=== PATIENT | female | born 1980 | race Caucasian/White ===

== ENCOUNTER 2018-06-28 00:25 | Emergency (ER) | payer OTHER ==
[2018-06-28] MEDS ORDERED: Sodium Chloride 0.9% 10 ML Syringe FLUSH PRN (00:55)
[2018-06-28] MEDS ORDERED: LORazepam 0.5 MG Tab PO ONE ×2 (01:04→02:10)
--- NOTE | 2018-06-28 01:13 | EDM.PDOC ---
ED HPI GENERAL MEDICAL PROBLEM - General Chief Complaint: General Stated Complaint: palpitations Time Seen by Provider: 06/28/18 00:40 Source of Information: Reports: Patient History Limitations: Reports: No Limitations - History of Present Illness INITIAL COMMENTS - FREE TEXT/NARRATIVE: 38 YO WF presents to ER complaining of 1 week of intermittent palpitations, feeling flush in her face, hands and feet and feeling shaky. Pt denies any chest pain or shortness of breath. Pt states she has been under additional stress lately but states this is the first time she's experienced these symptoms. Pt denies any lower extremity swelling, no history of tobacco use, no long car/plane rides. Pt does take BCP. Pt reports she is also taking some OTC vitamins but nothing new recently. Pt denies any other medication use/drug use or past medical history. Pt denies any fever/chills, recent illnesses, no nausea /vomiting, no dizziness or diaphoresis. Onset Date: 06/21/18 Duration: Week(s): (1) Location: Reports: Generalized Severity: Moderate Improves with: Reports: None Worsens with: Reports: None Associated Symptoms: Reports: No Other Symptoms. Denies: Chest Pain, Diaphoresis, Nausea/Vomiting, Shortness of Breath, Syncope - Related Data Allergies Allergy/AdvReac Type Severity Reaction Status Date / Time No Known Allergies Allergy Verified 06/28/18 00:47 Home Meds: Home Meds Desogestrel-Ethinyl Estradiol [Apri 28 Day Tablet] 1 each PO DAILY 06/28/18 [ History] ED ROS GENERAL - Review of Systems Review Of Systems: See Below Constitutional: Reports: Chills HEENT: Reports: No Symptoms Respiratory: Reports: No Symptoms Cardiovascular: Reports: Palpitations Endocrine: Reports: No Symptoms GI/Abdominal: Reports: No Symptoms : Reports: No Symptoms Musculoskeletal: Reports: No Symptoms Skin: Reports: No Symptoms Neurological: Reports: No Symptoms Psychiatric: Reports: No Symptoms Hematologic/Lymphatic: Reports: No Symptoms Immunologic: Reports: No Symptoms ED EXAM, GENERAL - Physical Exam Exam: See Below Exam Limited By: No Limitations General Appearance: Alert, WD/WN, No Apparent Distress Throat/Mouth: Normal Inspection, Normal Lips, Normal Teeth, Normal Gums, Normal Oropharynx, Normal Voice, No Airway Compromise Head: Atraumatic, Normocephalic Neck: Normal Inspection, Supple, Non-Tender, Full Range of Motion Respiratory/Chest: No Respiratory Distress, Lungs Clear, Normal Breath Sounds, No Accessory Muscle Use, Chest Non-Tender Cardiovascular: Normal Peripheral Pulses, Regular Rate, Rhythm, No Edema, No Gallop, No JVD, No Murmur, No Rub GI/Abdominal: Normal Bowel Sounds, Soft, Non-Tender, No Organomegaly, No Distention, No Abnormal Bruit, No Mass Back Exam: Normal Inspection, Full Range of Motion, NT Extremities: Normal Inspection, Normal Range of Motion, Non-Tender, Normal Capillary Refill, No Pedal Edema Neurological: Alert, Oriented, CN II-XII Intact, Normal Cognition, Normal Gait, Normal Reflexes, No Motor/Sensory Deficits Psychiatric: Normal Affect, Normal Mood Skin Exam: Warm, Dry, Intact, Normal Color, No Rash Lymphatic: No Adenopathy EKG INTERPRETATION EKG Date: 06/28/18 Time: 00:48 Rhythm: NSR Rate (Beats/Min): 77 [place]: Normal P-Wave: Present QRS: Normal ST-T: Normal QT: Normal Comparison: NA - No Prior EKG Course - Vital Signs Last Recorded V/S: Last Vital Signs Temp 36.7 C 06/28/18 00:25 Pulse 75 06/28/18 01:45 Resp 18 06/28/18 01:15 BP 115/75 06/28/18 01:45 Pulse Ox 97 06/28/18 00:25 - Orders/Labs/Meds Orders: Active Orders 24 hr Category Date Time Status Peripheral IV Care [RC] . DIRECTED Care 06/28/18 00:56 Active Chest 2V [CR] Stat Exams 06/28/18 00:55 Taken Sodium Chloride 0.9% [Saline Flush] Med 06/28/18 00:55 Active 10 ml FLUSH Q8HR PRN Peripheral IV Insertion Adult [OM.PC] Routine Oth 06/28/18 00:55 Ordered EKG 12 Lead [EK] Routine Ther 06/28/18 00:52 Ordered Medication Orders Sodium Chloride (Saline Flush) 10 ml FLUSH Q8HR PRN PRN Reason: keep vein open Labs: Laboratory Tests 06/28/18 06/28/18 06/28/18 Range/Units 00:50 00:50 00:50 WBC 10.82 H (5.00-10.00) 10^3/uL RBC 4.63 (3.80-5.50) 10^6/uL Hgb 14.6 (12.0-16.0) g/dL Hct 43.6 (37.0-47.0) % MCV 94.2 H (82.0-92.0) fL MCH 31.5 H (27.0-31.0) pg MCHC 33.5 (32.0-36.0) g/dL RDW 11.9 (11.5-14.5) % Plt Count 259 (150-400) 10^3/uL MPV 10.5 H (7.4-10.4) fL Immature Gran % (Auto) 0.2 (0.0-5.0) % Neut % (Auto) 68.2 (50.0-70.0) % Lymph % (Auto) 25.4 (20.0-40.0) % [place] % (Auto) 5.3 (2.0-8.0) % Eos % (Auto) 0.6 L (1.0-3.0) % Baso % (Auto) 0.3 (0.0-1.0) % Immature Gran # (Auto) 0.02 (0.00-0.50) 10^3/uL Neut # (Auto) 7.39 H (2.50-7.00) 10^3/uL Lymph # (Auto) 2.75 (1.00-4.00) 10^3/uL [place] # (Auto) 0.57 (0.10-0.80) 10^3/uL Eos # (Auto) 0.06 L (0.10-0.30) 10^3/uL Baso # (Auto) 0.03 (0.00-0.10) 10^3/uL D-Dimer, Quantitative < 100 (<400) ng/mL Sodium 143 (136-145) mmol/L Potassium 3.8 (3.3-5.3) mmol/L Chloride 106 (98-115) mmol/L Carbon Dioxide 24.6 (21.0-32.0) mmol/L Anion Gap 16.2 H (5-15) mmol/L BUN 20 (6-25) mg/dL Creatinine 0.74 (0.51-1.17) mg/dL Est Cr Clr Drug Dosing 99.88 mL/min Estimated GFR (MDRD) > 60 mL/min Glucose 124 H (75 - 99) mg/dL Calcium 9.3 (8.7-10.3) mg/dL Total Bilirubin 0.2 (0.2-1.0) mg/dL AST 13 L (15-37) U/L ALT 23 (12-78) U/L Alkaline Phosphatase 48 (46-116) IU/L Creatine Kinase 67 (26-276) U/L CK-MB (CK-2) 0.80 (0.00-4.30) ng/mL Troponin I < 0.04 (0.00-0.070) ng/mL Total Protein 7.7 (6.4-8.2) g/dL Albumin 3.99 (3.00-4.80) g/dL HCG, Qual Negative (NEGATIVE) Meds: Medications Generic Name Dose Route Start Last Admin Trade Name Freq PRN Reason Stop Dose Admin Sodium Chloride 10 ml 06/28/18 00:55 Saline Flush FLUSH Q8HR PRN keep vein open Discontinued Medications Generic Name Dose Route Start Last Admin Trade Name Freq PRN Reason Stop Dose Admin Lorazepam 1 mg 06/28/18 01:04 06/28/18 01:10 Ativan PO 06/28/18 01:05 1 mg ONETIME ONE Administration - Radiology Interpretation Free Text/Narrative:: CXR- NAD - Re-Assessments/Exams Free Text/Narrative Re-Assessment/Exam: 06/28/18 02:02 pt reports she's feeling better and would like to be discharged home Departure - Departure Time of Disposition: 02:01 Disposition: Home, Self-Care 01 Condition: Good Clinical Impression: Palpitations - Discharge Information Instructions: Palpitations, Generalized Anxiety Disorder, Adult Forms: ED Department Discharge Additional Instructions: 1. discharge home 2. follow up in clinic for further evaluation and treatment- suggest thyroid panel 3. return to ER for worsening symptoms - My Orders Last 24 Hours: My Active Orders 06/28/18 00:52 EKG 12 Lead [EK] Routine 06/28/18 00:55 Chest 2V [CR] Stat Sodium Chloride 0.9% [Saline Flush] 10 ml FLUSH Q8HR PRN Peripheral IV Insertion Adult [OM.PC] Routine 06/28/18 00:56 Peripheral IV Care [RC] . DIRECTED - Assessment/Plan Last 24 Hours: My Active Orders 06/28/18 00:52 EKG 12 Lead [EK] Routine 06/28/18 00:55 Chest 2V [CR] Stat Sodium Chloride 0.9% [Saline Flush] 10 ml FLUSH Q8HR PRN Peripheral IV Insertion Adult [OM.PC] Routine 06/28/18 00:56 Peripheral IV Care [RC] . DIRECTED Assessment:: 1. Palpitations 2. possible anxiety disorder Plan: 1. discharge home 2. follow up in clinic for further evaluation and treatment- suggest thyroid panel 3. return to ER for worsening symptoms
[2018-06-28 01:52] LABS: ANION GAP 16.2 mmol/L (5-15); CHLORIDE,CL 106 mmol/L (98-115); SODIUM,NA 143 mmol/L (136-145)
[2018-06-28] MEDS ORDERED: LORazepam 0.5 MG Tab ONE (02:12)
--- NOTE | 2018-06-28 08:27 | CR ---
[id number] RAD/RAD Chest PA And Lateral EXAM: RAD Chest PA And Lateral INDICATION: SHAKY, ELEVATED BLOOD PRESSURE COMPARISON: None. DISCUSSION: Cardiomediastinal silhouette is normal in size and contour. No infiltrate, effusion, pneumothorax, or edema. IMPRESSION: Negative examination of the chest. Jose Alberto Myers MD 06/28/18 0825 Thank you for allowing us to participate in the care of your patient.
== END 2018-06-28 02:15 | disposition home or self-care (01) ==
LOC: KA.ED 00:25
DX: R00.2 Palpitations (principal)
CPT/HCPCS: 36415; 71046; 80053; 82550; 82553; 84484; 84703; 85025; 85379; 93005; 99285; A9270-GY